=== PATIENT | male | born 1980 | race Caucasian/White ===

== ENCOUNTER 2024-08-21 09:18 | Emergency (ER) | payer BC ==
[2024-08-21 09:50] VITALS: BP 141/91; PULSE 100; TEMP 98.2
--- NOTE | 2024-08-21 11:04 | US ---
EXAMINATION TYPE: US venous doppler duplex LE LT DATE OF EXAM: 08/21/2024 10:49 AM COMPARISON: NONE CLINICAL INDICATION: Male, 43 years old with history of swollen leg; pt states his LT leg has been sw ollen for roughly 4 days, Pain TECHNIQUE: The lower extremity deep venous system is examined utilizing real time linear array sonog coby with graded compression, color doppler sonography, and spectral doppler. SIDE PERFORMED: Left FINDINGS: VESSELS IMAGED: Common Femoral Vein Deep Femoral Vein Greater Saphenous Vein * Femoral Vein Popliteal Vein Small Saphenous Vein * Proximal Calf Veins (* superficial vessels) Left Leg: Negative for DVT, Color Doppler imaging shows patency of the vessels. Spectral waveforms a re within normal limits. IMPRESSION: No ultrasound evidence for deep venous thrombosis. [facility], , 08/21/2024 11:02 AM
--- NOTE | 2024-08-21 11:20 | ED ---
General Adult HPI - General Chief complaint: Extremity Problem,Nontraumatic Stated complaint: L leg pain Time Seen by Provider: 08/21/24 09:22 Source: patient Mode of arrival: ambulatory Limitations: no limitations - History of Present Illness Initial comments: Dictation was produced using [employer] dictation software. please excuse any grammatical, word or spelling errors. Chief Complaint: 43-year-old male presents to the emergency department with left leg pain History of Present Illness: Patient is a 43-year-old male with no significant comorbidities. Presents with left leg pain. States pain initially started with left medial knee pain. Now it radiates to the posterior knee, medial thigh and proximal calf. No history of blood clots. No recent travel. No family history of any diseases. Denies any chest pain or shortness of breath The ROS documented in this emergency department record has been reviewed and confirmed by me. Those systems with pertinent positive or negative responses have been documented in the HPI. All other systems are other negative and/or noncontributory. - Related Data Previous Rx's Medication Instructions Recorded HYDROcodone/APAP 5-325MG [Crum 1 tab PO Q6HR PRN 3 Days #12 tab 08/21/24 5-325] Allergies Allergy/AdvReac Type Severity Reaction Status Date / Time No Known Allergies Allergy Verified 08/21/24 09:50 Review of Systems ROS Statement: Those systems with pertinent positive or pertinent negative responses have been documented in the HPI. ROS Other: All systems not noted in ROS Statement are negative. Past Medical History Past Medical History: No Reported History Past Surgical History: No Surgical Hx Reported Past Psychological History: No Psychological Hx Reported Smoking Status: Never smoker Past Alcohol Use History: Occasional Past Drug Use History: None Reported General Exam - General Exam Comments Initial Comments: General: Well-appearing, nontoxic, no acute distress. Head: Normocephalic, atraumatic Eyes: PERRLA, EOMI ENT: Airway patent Chest: Nonlabored breathing Skin: No visual rash, normal skin tone Neuro: Alert and oriented 3 Musculoskeletal: No gross abnormalities Left lower extremity: Palpatory tenderness of the calf, popliteal knee and medial thigh Limitations: no limitations Course Vital Signs 08/21/24 09:47 Temperature 98.2 F Pulse Rate 100 Respiratory 20 Rate Blood Pressure 141/91 O2 Sat by Pulse 99 Oximetry Medical Decision Making - Medical Decision Making Was pt. sent in by a medical professional or institution (, PA, INDUSTRIAL SAFETY AND HEALTH TECHNICIAN, urgent care, hospital, or shelter...) When possible be specific @ -No Did you speak to anyone other than the patient for history (EMS, parent, family, police, friend...)? What history was obtained from this source @ -No Did you review nursing and triage notes (agree or disagree)? Why? @ -I reviewed and agree with nursing and triage notes Were old charts reviewed (outside hosp., previous admission, EMS record, old EKG, old radiological studies, urgent care reports/EKG's, shelter records)? Report findings @ -No old charts were reviewed Differential Diagnosis (chest pain, altered mental status, abdominal pain women, abdominal pain men, vaginal bleeding, musculoskeletal, weakness, fever, dyspnea, syncope, headache, dizziness, GI bleed, back pain, seizure, CVA, palpatations, mental health)? @ -Septic arthritis, crystal arthropathy, DVT EKG interpreted by me (3pts min.). @ -None done X-rays interpreted by me (1pt min.). @ -Tib-fib x-ray shows no acute processes CT interpreted by me (1pt min.). @ -None done U/S interpreted by me (1pt. min.). @ -Ultrasound left lower extremity shows no DVT What testing was considered but not performed or refused? (CT, X-rays, U/S, labs)? Why? @ -None What meds were considered but not given or refused? Why? @ -None Was smoking cessation discussed for >3mins.? @ -No Were there social determinants of health that impacted care today? How? (Homelessness, low income, unemployed, alcoholism, drug addiction, transportation, low edu. Level, literacy, decrease access to med. care, halfway, rehab)? @ -No Was there de-escalation of care discussed even if they declined (Discuss DNR or withdrawal of care, Hospice)? DNR status @ -No What co-morbidities impacted this encounter? (DM, HTN, Smoking, COPD, CAD, Cancer, CVA, ARF, Chemo, Hep., AIDS, mental health diagnosis, sleep apnea, morbid obesity)? @ -None Was patient admitted / discharged? Hospital course, mention meds given and route, prescriptions, significant lab abnormalities, going to OR and other pertinent info. @ -43-year-old male with left knee pain. Vital signs are stable. Patient has no respiratory symptoms. Ultrasound shows no DVT. Pain has musculoskeletal features. X-ray shows no acute process. Slight knee effusion. Patient discha rged with outpatient referral to knee specialist. Patient provided with crutches and knee immobilizer Did you discuss the management of the patient with other professionals (professionals i.e. , PA, INDUSTRIAL SAFETY AND HEALTH TECHNICIAN, lab, RT, psych nurse, social worker clinical, school child care attendant, teacher, environmental conservation officer, rn field case manager)? Give summary @ -No Was critical care preformed (if so, how long)? @ -No Undiagnosed new problem with uncertain prognosis? @ -No Drug Therapy requiring intensive monitoring for toxicity (Heparin, Nitro, Insulin, Cardizem)? @ -No Were any procedures done? @ -No Diagnosis/symptom? Acute, or Chronic, or Acute on Chronic? Uncomplicated (without systemic symptoms) or Complicated (systemic symptoms)? @ -Knee pain Side effects of treatment? @ -No Exacerbation, Progression, or Severe Exacerbation? @ -No Poses a threat to life or bodily function? How? (Chest pain, [place], [place], pneumonia, PE, COPD, DKA, ARF, appy, cholecystitis, CVA, Diverticulitis, Homicidal, Suicidal, threat to staff... and all critical care pts) @ -yes Disposition Clinical Impression: Knee pain Disposition: HOME SELF-CARE Condition: Fair Instructions (If sedation given, give patient instructions): Swollen Joint (ED) Prescriptions: HYDROcodone/APAP 5-325MG [Crum 5-325] 1 tab PO Q6HR PRN 3 Days #12 tab PRN Reason: Severe Pain Is patient prescribed a controlled substance at d/c from ED?: Yes If prescribed controlled substance>3 days was MAPS reviewed?: Prescribed <3 Days Referrals: Aracelis Oliveira MD [Primary Care Provider] - 1-2 days Imer Lozano DO [Doctor of Osteopathic Medicine] - 1-2 days Odnina Grover DO [Doctor of Osteopathic Medicine] - 1-2 days Time of Disposition: 12:55
--- NOTE | 2024-08-21 12:12 | XR ---
EXAMINATION TYPE: XR tibia fibula LT DATE OF EXAM: 08/21/2024 11:50 AM COMPARISON: None. CLINICAL INDICATION: Male, 43 years old with history of swollen leg, pain TECHNIQUE: XR tibia fibula LT views were obtained FINDINGS: There is no acute fracture/dislocation evident. The joint spaces appear within normal limits. The o verlying soft tissue appears unremarkable. IMPRESSION: No acute fracture or dislocation seen. [facility], , 08/21/2024 12:10 PM
[2024-08-21 13:03] VITALS: RESP 16
== END 2024-08-21 13:03 | disposition home or self-care (01) ==
LOC: EC 09:18
DX: M25.562 Pain in left knee (principal)
CPT/HCPCS: 73590; 93971; 99284; L1830